=== PATIENT | female | born 1935 | race Caucasian/White ===

== ENCOUNTER 2019-02-21 10:59 | Observation (INO) | payer MEDICARE, OTHER ==
[~2019-02-21] VITALS: Ht 154.9 cm; Wt 47.7 kg
[~2019-02-21 10:59] MED LIST: ANTIVERT12.5 MG PO; ARICEPT10 MG PO; ARTIFICIAL TEAR15 ML EACH EYE; BAYER CHEWABLE81 MG PO; BENICAR40 MG PO; BENICAR5 MG PO; BOUDREAUXS113 GM TP; CYMBALTA60 MG PO; LIDODERM 5 %1 PATCH TRANSDERM; LOMOTIL TABLET1 TAB PO; LOPRESSOR25 MG PO; MAG-OXIDE400 MG PO; NITROSTAT0.4 MG SL; NORVASC5 MG PO; PLAVIX75 MG PO; PRAVACHOL20 MG PO; PREDNISONE10 MG PO; PREDNISONE5 MG PO; PROTONIX40 MG PO; SEROQUEL25 MG PO; SYNTHROID75 MCG PO; ULTRACET TABLET1 TAB PO; VITAMIN B-121000 MCG PO; XANAX1 MG PO; ZESTRIL20 MG PO; ZOLOFT50 MG PO
[2019-02-21] MEDS ORDERED: DEBROX OTIC15 ML EACH EAR (11:11)
[2019-02-21] MEDS ORDERED: NORVASC5 MG PO (11:11)
[2019-02-21] MEDS ORDERED: CYMBALTA20 MG PO (11:12)
[2019-02-21] MEDS ORDERED: PACERONE200 MG PO (11:12)
[2019-02-21] MEDS ORDERED: METOPROLOL TART25 MG PO (11:13)
[2019-02-21] MEDS ORDERED: FOLIC ACID1 MG PO (11:13)
[2019-02-21] MEDS ORDERED: MAGNESIUM OXID420 MG PO (11:13)
[2019-02-21] MEDS ORDERED: ROBAXIN500 MG PO (11:14)
[2019-02-21] MEDS ORDERED: LACTINEX C1 TAB.CHEW PO (11:15)
[2019-02-21 12:02] LABS: HEMATOCRIT 36.3 % (36.0-48.0); HEMOGLOBIN 12.7 g/dL (12-16); LYMPHOCYTES 22.3 % (15-50); MCH 32.7 pg (26.0-34.0); MCV 93.6 fL (80.0-100.0); NEUTROPHILS 62.5 % (40-80); PLATELET COUNT 199 10x3/uL (130-400); RBC 3.88 10x6/uL (4.00-5.40); WBC 6.9 10x3/uL (4.8-10.8)
[2019-02-21 12:09] LABS: ALBUMIN 3.1 g/dL (3.4-5.0); ALKALINE PHOSPHATASE 54 U/L (46-116); ALT (SGPT) 79 U/L (10-68); BILIRUBIN - TOTAL 0.43 mg/dL (0.2-1.3); CALC OSMOLALITY 283 mosm/kg (275-300); CALCIUM 9.1 mg/dL (8.5-10.1); CARBON DIOXIDE 31.7 mmol/L (21.0-32.0); CHLORIDE - SERUM 98 mmol/L (98-107); CREATININE - SERUM 1.4 mg/dL (0.6-1.3); GLUCOSE 102 mg/dL (74-106); POTASSIUM - SERUM 3.1 mmol/L (3.5-5.1); PROTEIN - SERUM 6.4 g/dL (6.4-8.2); SODIUM 139 mmol/L (136-145); UREA NITROGEN 30 mg/dL (7-18); eGFR NON AFRICAN AMERICAN 38 mL/min (90-120)
[2019-02-21 12:19] LABS: CREATINE KINASE 17 UL (21-215); LIPASE 118 U/L (73-393); MAGNESIUM - SERUM 2.1 mg/dL (1.8-2.4); PRO BNP 3452 pg/mL (0-450); THYROID STIMULATING HORMONE 6.03 uIU/mL (0.36-3.74); TROPONIN-I < 0.017 ng/mL (0.000-0.060)
[2019-02-21 13:34] LABS: APTT 62.1 SECONDS (22.8-39.4)
[2019-02-21 13:47] LABS: INR 10.22 (0.85-1.17); PROTIME 80.3 SECONDS (11.6-15.0)
[2019-02-21 14:04] LABS: APPEARANCE CLEAR (CLEAR); BACTERIA FEW /hpf (NONE SEEN); BILIRUBIN NEGATIVE (NEGATIVE); COLOR YELLOW (YELLOW); EPITHELIAL CELLS 0-5 /hpf (0-5); GLUCOSE 100 mg/dL (NEGATIVE); KETONE NEGATIVE (NEGATIVE); NITRITE NEGATIVE (NEGATIVE); PROTEIN TRACE mg/dL (NEGATIVE); UROBILINOGEN NORMAL (NORMAL); WHITE CELLS - URINE RARE /hpf (0-5)
[2019-02-21 14:06] LABS: MUCUS <1+ /lpf (NONE SEEN)
[2019-02-21 16:40] VITALS: BP 144/64; Ht 154.9 cm; Wt 47.7 kg
--- NOTE | 2019-02-21 17:39 | NUR ---
PT LYING IN BED AAO X4 TO PERSON, PLACE, TIME, AND SITUATION. DENIES NEEDS AT THIS TIME. CL IN REACH. SIDE RAILS UP X3 FOR PT SAEFTY. BED IN LOWEST POSITION.
[2019-02-21 20:58] VITALS: BP 111/50
[2019-02-22 01:35] VITALS: BP 141/52
--- NOTE | 2019-02-22 04:42 | NUR ---
REC'D. IN BED AT [facility] OF SHIFT WATCHING TV DR SCHERER HERE WILL CONTINUE TO MONITOR FOR ANY CHGES AND FOLLOW CURRENT PLAN OF CARE
[2019-02-22 05:04] LABS: BASOPHILS 0.2 % (0-2); EOSINOPHILS 4.6 % (0-7); IMMATURE GRANULOCYTES 1.3 % (0-5); LYMPHOCYTES 15.4 % (15-50); MCH 31.1 pg (26.0-34.0); MEAN PLATELET VOLUME 9.8 fL (7.4-10.4); MONOCYTES 11.7 % (2-11); NEUTROPHILS 66.8 % (40-80); PLATELET COUNT 168 10x3/uL (130-400); RDW 13.2 % (11.5-14.5); WBC 5.5 10x3/uL (4.8-10.8)
[2019-02-22 05:07] LABS: HEMATOCRIT 28.2 % (36.0-48.0); HEMOGLOBIN 9.6 g/dL (12-16); MCV 91.3 fL (80.0-100.0); RBC 3.09 10x6/uL (4.00-5.40)
[2019-02-22 05:24] LABS: INR 1.81 (0.85-1.17); PROTIME 20.3 SECONDS (11.6-15.0)
[2019-02-22 05:25] VITALS: BP 180/71
[2019-02-22 05:37] LABS: BILIRUBIN - TOTAL 0.59 mg/dL (0.2-1.3); CALCIUM 8.7 mg/dL (8.5-10.1); CARBON DIOXIDE 32.3 mmol/L (21.0-32.0); CREATININE - SERUM 1.2 mg/dL (0.6-1.3)
[2019-02-22 05:40] LABS: ANION GAP 9.5 mmol/L (8-16); POTASSIUM - SERUM 2.8 mmol/L (3.5-5.1)
[2019-02-22 08:42] VITALS: BP 180/69
--- NOTE | 2019-02-22 09:47 | NUR ---
MORNING ASSESSMENT COMPLETE. SEE ASSESSMENT FLOWSHEET FOR FURTHER DETAILS. PT LYING IN BED AAO X4 TO PERSON, PLACE, TIME, AND SITUATION. DENIES NEEDS AT THIS TIME. CL IN REACH. SIDE RAILS UP X3 FOR PT SAEFTY. BE IN LOWEST POSITION.
--- NOTE | 2019-02-22 12:49 | MORECARE ---
CASE MANAGEMENT DISCHARGE SUMMARY PATIENT: NICOLE SHETH UNIT: [id number] ADM DATE: 02/21/19 AGE: 83 : 36 SEX: F ROOM/BED: D.[facility] AUTHOR: TONNY BOSWELL PHYSICIAN: REFERRING PHYSICIAN: CHRISTIANO SCHERER MD DATE OF SERVICE: 02/22/19 Discharge Plan Patient Name: NICOLE SHETH Facility: [facility]:[place] : 1935 Planned Disposition: Assisted Living Anticipated Discharge Date: 02/22/19 Discharge Date: Expected LOS: 1 Initial Reviewer: [email or web address] Initial Review Date: 02/21/2019 Generated: 02/22/19 1:48 pm DCPIA - Discharge Planning Initial Assessment Updated by [email or web address]: June Jackson on 02/22/19 12:48 pm * Is the patient Alert and Oriented? Yes * How many steps to enter\exit or inside your home? 0/0 * PCP Dr. Brant Eddy * Pharmacy [facility] supplies medicine * Preadmission Environment Assisted Living * Facility Name [facility] * ADLs Partial Dependent * Partial ADLs (Assistance needed) Ambulation Bathing Dressing Medication Management * Equipment Walker * List name and contact numbers for known caregivers / representatives who currently or will assist patient after discharge: Abraham Teague - does not have number * Verbal permission to speak to the caregivers and representatives has been obtained from the patient. No * Community resources currently utilized Assisted Living * Please name any agencies selected above. [facility] * Additional services required to return to the preadmission environment? No * Can the patient safely return to the preadmission environment? Yes * Has this patient been hospitalized within the prior 30 days at any hospital? No Patient Name: NICOLE SHETH Page [id number] at 1249 All edits/amendments must be made on the electronic document DICTATION DATE: 02/22/198 ADMISSIONS RN: EVA 02/22/19 1248 RPT#: [id number] DC DATE: STATUS: ADM IN [facility] [address] [place] [address] END OF REPORT
--- NOTE | 2019-02-22 12:56 | MORECARE ---
CASE MANAGEMENT DISCHARGE SUMMARY PATIENT: NICOLE SHETH UNIT: [id number] ADM DATE: 02/21/19 AGE: 83 : 36 SEX: F ROOM/BED: D.2233 AUTHOR: ELBERTDOC PHYSICIAN: REFERRING PHYSICIAN: CHRISTIANO SCHERER MD DATE OF SERVICE: 02/22/19 Discharge Plan Patient Name: NICOLE SHETH Facility: [facility]:[place] : 1935 Planned Disposition: Assisted Living Anticipated Discharge Date: 02/22/19 Discharge Date: Expected LOS: 1 Initial Reviewer: [email or web address] Initial Review Date: 02/21/2019 Generated: 02/22/19 1:56 pm Comments DCP- Discharge Planning Updated by [email or web address]: June Jackson on 02/22/19 11:[address] Patient Name: NICOLE SHETH Admission Status: ER Accout number: [id number] Admission Date: 02-21-2019 : 1935 Admission Diagnosis: Attending: CHRISTIANO SCHERER Current LOS: 1 Anticipated DC Date: 02-22-2019 Planned Disposition: Assisted Living Primary Insurance: MEDICARE A & B Discharge Planning Comments: CM met with patient to complete initial dc planning assessment. CM educated patient on the CM role and verbal consent given by patient to complete assessment. Patient lives at [facility]. At discharge patient plans to return and feels this is a safe discharge. She states she was recently in [facility] and used all the days she could prior to going to [facility]. CM discussed availability of home health, rehab services, and medical equipment. Patient denied known discharge needs at this time. She declines inpatient rehab or skilled therapy at this time. CM will continue to follow and will assist as needed with dc plans/needs. Forestry Pilot: June Jackson DCPIA - Discharge Planning Initial Assessment Updated by [email or web address]: June Jackson on 02/22/19 12:48 pm * Is the patient Alert and Oriented? Yes * How many steps to enter\exit or inside your home? 0/0 * PCP Dr. Brant Eddy * Pharmacy [facility] supplies medicine * Preadmission Environment Assisted Living * Facility Name [facility] * ADLs Partial Dependent * Partial ADLs (Assistance needed) Ambulation Bathing Dressing Medication Management * Equipment Walker * List name and contact numbers for known caregivers / representatives who currently or will assist patient after discharge: Abraham Teague - does not have number * Verbal permission to speak to the caregivers and representatives has been obtained from the patient. No * Community resources currently utilized Assisted Living * Please name any agencies selected above. [facility] * Additional services required to return to the preadmission environment? No * Can the patient safely return to the preadmission environment? Yes * Has this patient been hospitalized within the prior 30 days at any hospital? No Last DP export: 02/22/19 11:49 a Patient Name: NICOLE SHETH Page 71610 at 1256 All edits/amendments must be made on the electronic document DICTATION DATE: 02/22/191254 REAL ESTATE TRANSACTION COORDINATOR: EAV 02/22/19 1255 RPT#: [id number] DC DATE: STATUS: ADM IN [facility] [address] [place] [address] END OF REPORT
[2019-02-22] MEDS ORDERED: COUMADIN1 MG PO (12:57)
--- NOTE | 2019-02-22 13:04 | MORECARE ---
CASE MANAGEMENT DISCHARGE SUMMARY PATIENT: NICOLE SHETH UNIT: [id number] ADM DATE: 02/21/19 AGE: 83 : 36 SEX: F ROOM/BED: D.2233 AUTHOR: ELBERTDOC PHYSICIAN: REFERRING PHYSICIAN: CHRISTIANO SCHERER MD DATE OF SERVICE: 02/22/19 Discharge Plan Patient Name: NICOLE SHETH Facility: [facility]:[place] : 1935 Planned Disposition: Assisted Living Anticipated Discharge Date: 02/22/19 Discharge Date: Expected LOS: 1 Initial Reviewer: [email or web address] Initial Review Date: 02/21/2019 Generated: 02/22/19 2:04 pm Comments DCP- Discharge Planning Updated by [email or web address]: June Jackson on 02/22/19 11:[address] Patient Name: NICOLE SHETH Admission Status: ER Accout number: [id number] Admission Date: 02-21-2019 : 1935 Admission Diagnosis: Attending: CHRISTIANO SCHERER Current LOS: 1 Anticipated DC Date: 02-22-2019 Planned Disposition: Assisted Living Primary Insurance: MEDICARE A & B Discharge Planning Comments: CM met with patient to complete initial dc planning assessment. CM educated patient on the CM role and verbal consent given by patient to complete assessment. Patient lives at [facility]. At discharge patient plans to return and feels this is a safe discharge. She states she was recently in [facility] and used all the days she could prior to going to [facility]. CM discussed availability of home health, rehab services, and medical equipment. Patient denied known discharge needs at this time. She declines inpatient rehab or skilled therapy at this time. CM will continue to follow and will assist as needed with dc plans/needs. Retail Stock Clerk: June Jackson DCPIA - Discharge Planning Initial Assessment Updated by [email or web address]: June Jackson on 02/22/19 12:48 pm * Is the patient Alert and Oriented? Yes * How many steps to enter\exit or inside your home? 0/0 * PCP Dr. Brant Eddy * Pharmacy [facility] supplies medicine * Preadmission Environment Assisted Living * Facility Name [facility] * ADLs Partial Dependent * Partial ADLs (Assistance needed) Ambulation Bathing Dressing Medication Management * Equipment Walker * List name and contact numbers for known caregivers / representatives who currently or will assist patient after discharge: Abraham Teague - does not have number * Verbal permission to speak to the caregivers and representatives has been obtained from the patient. No * Community resources currently utilized Assisted Living * Please name any agencies selected above. [facility] * Additional services required to return to the preadmission environment? No * Can the patient safely return to the preadmission environment? Yes * Has this patient been hospitalized within the prior 30 days at any hospital? No External Providers External Provider: Mayi Sosa Next Contact Date: Service Request Date: Service Type: Resolution: Reviewer: Comments: Last DP export: 02/22/19 11:56 a Patient Name: NICOLE SHETH Page 91789 at 1304 All edits/amendments must be made on the electronic document DICTATION DATE: 02/22/19 1304 PHYSICAL SECURITY ENGINEER: EVA 02/22/19 1304 RPT#: [id number] DC DATE: STATUS: ADM IN [facility] [address] [place] [address] END OF REPORT
[2019-02-22 13:07] VITALS: BP 140/60
--- NOTE | 2019-02-22 13:11 | MORECARE ---
CASE MANAGEMENT DISCHARGE SUMMARY PATIENT: NICOLE SHETH UNIT: [id number] ADM DATE: 02/21/19 AGE: 83 : 36 SEX: F ROOM/BED: D.2233 AUTHOR: ELBERT,DOC PHYSICIAN: REFERRING PHYSICIAN: CHRISTIANO SCHERER MD DATE OF SERVICE: 02/22/19 Discharge Plan Patient Name: NICOLE SHETH Facility: [facility]:[place] : 1935 Planned Disposition: Assisted Living Anticipated Discharge Date: 02/22/19 Discharge Date: Expected LOS: 1 Initial Reviewer: [email or web address] Initial Review Date: 02/21/2019 Generated: 02/22/19 2:10 pm Comments DCP- Discharge Planning Updated by [email or web address]: June Jackson on 02/22/19 12:[address] Discharging to [facility] today. I spoke with nurse who states patient was taking Coumadin 1.5mg daily and I informed her it will be decreased to 1mg daily. They will pick the patient up at 2:45. I have faxed them clinical/discharge order/MAR. CM will continue to follow and assist with discharge planning/needs. DCP- Discharge Planning Updated by [email or web address]: June Jackson on 02/22/19 11:[address] Patient Name: NICOLE SHETH Admission Status: ER Accout number: [id number] Admission Date: 02-21-2019 : 1935 Admission Diagnosis: Attending: CHRISTIANO SCHERER Current LOS: 1 Anticipated DC Date: 02-22-2019 Planned Disposition: Assisted Living Primary Insurance: MEDICARE A & B Discharge Planning Comments: CM met with patient to complete initial dc planning assessment. CM educated patient on the CM role and verbal consent given by patient to complete assessment. Patient lives at [place]. At discharge patient plans to return and feels this is a safe discharge. She states she was recently in [facility] facility and used all the days she could prior to going to [facility]. CM discussed availability of home health, rehab services, and medical equipment. Patient denied known discharge needs at this time. She declines inpatient rehab or skilled therapy at this time. CM will continue to follow and will assist as needed with dc plans/needs. Hammerer Helper: June Manuel DCPIA - Discharge Planning Initial Assessment Updated by [id number]: June Danielssumit on 02/22/19 12:48 pm * Is the patient Alert and Oriented? Yes * How many steps to enter\exit or inside your home? 0/0 * PCP Dr. Brant Eddy * Pharmacy [facility] supplies medicine * Preadmission Environment Assisted Living * Facility Name [facility] * ADLs Partial Dependent * Partial ADLs (Assistance needed) Ambulation Bathing Dressing Medication Management * Equipment Walker * List name and contact numbers for known caregivers / representatives who currently or will assist patient after discharge: States sonAbraham - does not have number * Verbal permission to speak to the caregivers and representatives has been obtained from the patient. No * Community resources currently utilized Assisted Living * Please name any agencies selected above. [facility] * Additional services required to return to the preadmission environment? No * Can the patient safely return to the preadmission environment? Yes * Has this patient been hospitalized within the prior 30 days at any hospital? No Last DP export: 02/22/19 12:04 p Patient Name: NICOLE SHETH Page 50160 at 1311 All edits/amendments must be made on the electronic document DICTATION DATE: 02/22/191309 FORECLOSURE PARALEGAL: EVA 02/22/19 131 RPT#: [id number] DC DATE: STATUS: ADM IN [facility] [address] [place] [address] END OF REPORT
--- NOTE | 2019-02-22 15:09 | NUR ---
PT D/C CEASAR DICKEY VIA W/C. WENT OVER ALL D/C INSTRUCTIONS. PT STATES UNDERSTANDING. LEFT WITH ALL PERSONAL BELONGINGS
== END 2019-02-22 15:11 | disposition home or self-care (01) ==
LOC: D.ER 10:59 → D.MS 13:26 → OBSVTIME 13:26 → D.MS 13:26 → D.ER 14:25 → D.MS 14:45
PROVIDERS: Family Medicine; ADMIT Internal Medicine Nephrology; ATTEND Internal Medicine Nephrology
DX: D68.59 Other primary thrombophilia (principal); E87.5 Hyperkalemia; I48.91 Unspecified atrial fibrillation; Z86.73 Personal history of transient ischemic attack (TIA), and cerebral infarction without residual deficits; I12.9 Hypertensive chronic kidney disease with stage 1 through stage 4 chronic kidney disease, or unspecified chronic kidney disease; N18.9 Chronic kidney disease, unspecified

== ENCOUNTER 2019-03-14 11:19 | Emergency (ER) | payer MEDICARE, OTHER ==
[~2019-03-14] VITALS: Ht 152.4 cm; Wt 44.5 kg
[~2019-03-14 11:19] MED LIST changes: +COUMADIN1 MG PO; +CYMBALTA20 MG PO; +DEBROX OTIC15 ML EACH EAR; +FOLIC ACID1 MG PO; +LACTINEX C1 TAB.CHEW PO; +MAGNESIUM OXID420 MG PO; +METOPROLOL TART25 MG PO; +PACERONE200 MG PO; +ROBAXIN500 MG PO
[2019-03-14 11:22] VITALS: Ht 152.4 cm; Wt 44.5 kg
[2019-03-14 12:01] LABS: BASOPHILS 0.3 % (0-2); EOSINOPHILS 1.4 % (0-7); HEMATOCRIT 34.6 % (36.0-48.0); HEMOGLOBIN 11.7 g/dL (12-16); IMMATURE GRANULOCYTES 0.5 % (0-5); LYMPHOCYTES 22.8 % (15-50); MCH 31.8 pg (26.0-34.0); MCHC 33.8 g/dL (31.0-37.0); MEAN PLATELET VOLUME 9.2 fL (7.4-10.4); MONOCYTES 10.9 % (2-11); NEUTROPHILS 64.1 % (40-80); PLATELET COUNT 193 10x3/uL (130-400); RBC 3.68 10x6/uL (4.00-5.40); RDW 14.1 % (11.5-14.5); WBC 7.8 10x3/uL (4.8-10.8)
[2019-03-14 12:19] LABS: ALBUMIN 3.8 g/dL (3.4-5.0); ANION GAP 10.7 mmol/L (8-16); BILIRUBIN - TOTAL 0.6 mg/dL (0.2-1.3); CALCIUM 9.4 mg/dL (8.5-10.1); CARBON DIOXIDE 30.8 mmol/L (21.0-32.0); CREATININE - SERUM 1.5 mg/dL (0.6-1.3); POTASSIUM - SERUM 3.5 mmol/L (3.5-5.1); PROTEIN - SERUM 7.3 g/dL (6.4-8.2)
[2019-03-14 12:26] LABS: APTT 42.3 SECONDS (22.8-39.4); INR 3.17 (0.85-1.17); PROTIME 31.7 SECONDS (11.6-15.0)
[2019-03-14 17:56] VITALS: BP 158/71
== END 2019-03-14 16:28 | disposition home or self-care (01) ==
LOC: D.ER 11:19
PROVIDERS: Family Medicine
DX: S09.90XA Unspecified injury of head, initial encounter (principal); W18.30XA Fall on same level, unspecified, initial encounter; Y93.89 Activity, other specified; Y92.89 Other specified places as the place of occurrence of the external cause; S00.03XA Contusion of scalp, initial encounter; S60.221A Contusion of right hand, initial encounter; S50.812A Abrasion of left forearm, initial encounter

== ENCOUNTER 2019-07-27 08:15 | Inpatient (IN) | payer MEDICARE, OTHER ==
[~2019-07-27] VITALS: Ht 152.4 cm; Wt 46.3 kg
[2019-07-27 08:52] LABS: BASOPHILS 0.1 % (0-2); EOSINOPHILS 0.4 % (0-7); HEMATOCRIT 36.4 % (36.0-48.0); HEMOGLOBIN 12.2 g/dL (12-16); IMMATURE GRANULOCYTES 0.7 % (0-5); LYMPHOCYTES 1.3 % (15-50); MCH 31.9 pg (26.0-34.0); MCHC 33.5 g/dL (31.0-37.0); MCV 95.3 fL (80.0-100.0); NEUTROPHILS 92.5 % (40-80); PLATELET COUNT 146 10x3/uL (130-400); RBC 3.82 10x6/uL (4.00-5.40); RDW 13.6 % (11.5-14.5); WBC 13.7 10x3/uL (4.8-10.8)
--- NOTE | 2019-07-27 09:14 | NUR ---
CRITICAL LABRECEIVED FROM MINISTERIOHEMATOCRIT 16.7; HEMOBLOBIN 5.2; RBC 1.89; EDP VON NOTIFIED
[2019-07-27 09:16] LABS: ALBUMIN 3.2 g/dL (3.4-5.0); ANION GAP 12.7 mmol/L (8-16); BILIRUBIN - TOTAL 0.51 mg/dL (0.2-1.3); CALCIUM 8.3 mg/dL (8.5-10.1); CARBON DIOXIDE 29.1 mmol/L (21.0-32.0); CREATININE - SERUM 1.7 mg/dL (0.6-1.3); MAGNESIUM - SERUM 1.6 mg/dL (1.8-2.4); PROTEIN - SERUM 6.3 g/dL (6.4-8.2); THYROID STIMULATING HORMONE 1.25 uIU/mL (0.36-3.74); TROPONIN-I 0.027 ng/mL (0.000-0.060)
[2019-07-27 09:19] VITALS: BP 137/50
[2019-07-27 09:20] LABS: POTASSIUM - SERUM 2.8 mmol/L (3.5-5.1)
[2019-07-27 09:42] LABS: APPEARANCE HAZY (CLEAR); BILIRUBIN NEGATIVE (NEGATIVE); COLOR YELLOW (YELLOW); GLUCOSE 500 mg/dL (NEGATIVE); KETONE NEGATIVE (NEGATIVE); NITRITE NEGATIVE (NEGATIVE); PROTEIN 2+ mg/dL (NEGATIVE); SPECIFIC GRAVITY 1.015 (1.005-1.020); UROBILINOGEN NORMAL (NORMAL)
[2019-07-27 09:43] LABS: BACTERIA FEW /hpf (NEGATIVE); EPITHELIAL CELLS 0-5 /hpf (0-5); HYALINE CAST RARE /lpf (NONE SEEN); MUCUS <1+ /lpf (NONE SEEN); WHITE CELLS - URINE RARE /hpf (NEGATIVE)
--- NOTE | 2019-07-27 10:05 | NUR ---
ATTEMPTED REPORT, RECIEVING NURSE NOT AVAILABLE, WILL RETURN CALL
[2019-07-27 10:20] VITALS: BP 118/51
[2019-07-27 11:13] VITALS: BP 122/50; BMI 19.9
--- NOTE | 2019-07-27 11:21 | NUR ---
PATIENT ADMITTED TO ROOM 2214. ADMISSION ASSESSMENT COMPLETE. SCDS PLACED ON PATIENT. FALL PRECAUTIONS IN PLACE. WILL CONTINUE TO MONITOR.
--- NOTE | 2019-07-27 11:22 | NUR ---
ROCEPHIN INFUSION ENDED @1025
--- NOTE | 2019-07-27 11:43 | MORECARE ---
CASE MANAGEMENT DISCHARGE SUMMARY PATIENT: NICOLE SHETH UNIT: [id number] ADM DATE: 07/27/19 AGE: 83 : 36 SEX: F ROOM/BED: D.2214 AUTHOR: TONNY BOSWELL PHYSICIAN: REFERRING PHYSICIAN: CHRISTIANO SCHERER MD DATE OF SERVICE: 07/27/19 Discharge Plan Patient Name: NICOLE SHETH Facility: [facility]:[place] : 1935 Planned Disposition: Home Anticipated Discharge Date: 07/30/19 Discharge Date: Expected LOS: 3 Initial Reviewer: [email or web address] Initial Review Date: 07/27/2019 Generated: 07/27/19 12:43 pm Patient Name: NICOLE SHETH Page 37331 at 1143 All edits/amendments must be made on the electronic document DICTATION DATE: 07/27/19 1143 RESIDENTIAL GLAZIER: EVA 07/27/19 1143 RPT#: [id number] DC DATE: STATUS: ADM IN [facility] [address] [place] [address] END OF REPORT
--- NOTE | 2019-07-27 11:47 | NUR ---
PATIENT UNABLE TO STATE WHICH PHARMACY SHE USES. DOES NOT KNOW HOME MEDS. CALLED DR KNIGHT'S NURSE. STATES PATIENT IS FROM [facility] IN [place]. [facility] WILL SEND OVER MED REC AND OFFICE NOTE.
--- NOTE | 2019-07-27 11:49 | NUR ---
SPOKE WITH LEONARDO, STOCK PATCH SAWYER, TO REQUEST MONITOR FOR PATIENT.
[2019-07-27] MEDS ORDERED: MACROBID100 MG PO (11:51)
[2019-07-27] MEDS ORDERED: ATIVAN0.5 MG PO (11:52)
[2019-07-27] MEDS ORDERED: SYNTHROID112 MCG PO (11:53)
--- NOTE | 2019-07-27 11:53 | MORECARE ---
CASE MANAGEMENT DISCHARGE SUMMARY PATIENT: NICOLE SHETH UNIT: [id number] ADM DATE: 07/27/19 AGE: 83 : 36 SEX: F ROOM/BED: D.2214 AUTHOR: ELBERT,DOC PHYSICIAN: REFERRING PHYSICIAN: CHRISTIANO SCHERER MD DATE OF SERVICE: 07/27/19 Discharge Plan Patient Name: NICOLE SHETH Facility: [facility]:[place] : 1935 Planned Disposition: Home Anticipated Discharge Date: 07/30/19 Discharge Date: Expected LOS: 3 Initial Reviewer: [email or web address] Initial Review Date: 07/27/2019 Generated: 07/27/19 12:52 pm DCP- Discharge Planning Updated by [email or web address]: Dalila Mcpherson on 07/27/19 10:[address] DC PLAN: Return to [facility]. ANTICIPATED DC NEEDS: Denied known dc needs. CM met with patient to complete initial dc planning assessment. CM educated patient on the CM role and verbal consent given by patient to complete assessment. CM verified patient's address, phone number, and emergency contact phone numbers. Patient lives at [facility]. At discharge patient plans to return to [facility] and feels this is a safe discharge. CM discussed availability of home health, rehab services, and medical equipment. Patient denied known discharge needs at this time. Transportation provider at discharge will be [facility] . CM will continue to follow and will assist as needed with dc plans/needs. Dalila Mcpherson RN, [facility] DCPIA - Discharge Planning Initial Assessment Updated by [email or web address]: Dalila Mcpherson on 07/27/19 11:43 am * Is the patient Alert and Oriented? Yes * How many steps to enter\exit or inside your home? None * PCP Dr. Brant Eddy * Pharmacy [facility] * Preadmission Environment Assisted Living * Facility Name [facility] - [phone] * ADLs Partial Dependent * Partial ADLs (Assistance needed) Medication Management * Equipment Oxygen Shower Chair Walker * Other Equipment Does not have portable Oxygen. Wears O2 @ HS and prn. * List name and contact numbers for known caregivers / representatives who currently or will assist patient after discharge: Fransisca Lyman - [phone]-she thinks * Verbal permission to speak to the caregivers and representatives has been obtained from the patient. Yes * Community resources currently utilized None * Additional services required to return to the preadmission environment? No * Can the patient safely return to the preadmission environment? Yes * Has this patient been hospitalized within the prior 30 days at any hospital? No Last DP export: 07/27/19 10:43 Patient Name: NICOLE SHETH Page [phone] at 1153 All edits/amendments must be made on the electronic document DICTATION DATE: 07/27/19 115 MEDICAL BILLING AND CODING INSTRUCTOR: EVA 07/27/19 115 RPT#: [id number] DC DATE: STATUS: ADM IN [facility] [address] [place] [address] END OF REPORT
[2019-07-27] MEDS ORDERED: HYDROCODON-ACE1 EAC7 PO (11:56)
[2019-07-27] MEDS ORDERED: ROBAXIN500 MG PO (11:57)
[2019-07-27] MEDS ORDERED: FOLIC ACID1 MG PO (12:05)
[2019-07-27] MEDS ORDERED: CYMBALTA20 MG PO (12:05)
[2019-07-27] MEDS ORDERED: PROTONIX40 MG PO (12:07)
[2019-07-27] MEDS ORDERED: VITAMIN D31000 UNIT PO (12:08)
[2019-07-27] MEDS ORDERED: CALCIUM 600 +1 EAC3 PO (12:08)
--- NOTE | 2019-07-27 13:11 | NUR ---
PATIENT SLEEPING. WILL CONTINUE TO MONITOR.
--- NOTE | 2019-07-27 15:11 | NUR ---
NEW BAKED POTATO ORDERED PER PATIENT REQUEST. PATIENT'S WAS COLD.
--- NOTE | 2019-07-27 16:36 | NUR ---
REFUSES BLOOD SUGAR CHECK. STATES NOT DIABETIC. CHARTED IN MAR. DENIES NEEDS. WILL CONTINUE TO MONITOR.
--- NOTE | 2019-07-27 16:38 | NUR ---
PATIENT BLOOD PRESSURE RECHECKED AFTER LEGAL SECRETARY RECEPTIONIST GOT 100/43. BP 110/60.
[2019-07-27 16:45] VITALS: BP 100/43
--- NOTE | 2019-07-27 17:20 | NUR ---
PATIENT WITH NO BM SINCE COMING TO FLOOR. UNABLE TO COLLECT STOOL SPECIMEN AT THIS TIME.
[2019-07-27 17:24] LABS: INR 1.78 (0.85-1.17); PROTIME 20.1 SECONDS (11.6-15.0)
--- NOTE | 2019-07-27 18:33 | NUR ---
RESTING IN BED. DENIES NEEDS. BED LOW. FALL PRECAUTIONS IN PLACE. CALL SQUIRES AND PERSONAL ITEMS IN REACH.
--- NOTE | 2019-07-27 19:15 | NUR ---
PATIENT ALERT AND ORIENTED WHEN ENTERING THE ROOM. PATIENT WEARING 2 L NASAL CANNULA. LEFT SIDED PACEMAKER PRESENT. HAS LEFT FOREARM IV THAT IS INFUSING AT A KVO RATE. PATIENT DENIES PAIN AND DISCOMFORT. PATIENT IS HARD OR HEARING BUT ORIENTED, THOUGH THIS NURSE HAD TO REPEAT SELF AND TALK SLOWLY FOR PATIENT TO UNDERSTANDING. FALL PRECAUTIONS IN PLACE. SCD'S ON. PROVIDED INFORMATION SCIENTIFIC SOFTWARE ENGINEER LIGHT AND HOW TO USE. PATIENT PROVIDES RETURN DEMONSTRATION. BED LOCKED AND LOWERED. DENIES FURTHER NEEDS AT THIS TIME.
[2019-07-27 20:01] VITALS: BP 103/43
--- NOTE | 2019-07-27 21:00 | NUR ---
ADMINSITERED HS MEDICATIONS. REFUSES FSBS AT THIS TIME. EVEN WITH EDUCATION PATIENT REFUSES. STATES SHE IS NOT A DIABETIC. REQUESTS ATIVAN. BLOOD PRESSURE IS TOO LOW FOR ATIVAN AT THIS TIME, PATIENT VERBALIZES UNDERSTANDING.
[2019-07-28] VITALS: BP 133/53
--- NOTE | 2019-07-28 00:39 | NUR ---
RESTING QUIETLY WITH NO SIGNS OR SYMPTOMS OF DISTRESS. CALL LIGHT REMAINS IN REACH OF PATIENT. CPOC.
[2019-07-28 04:00] VITALS: BP 93/51
[2019-07-28 06:22] LABS: BASOPHILS 0.1 % (0-2); EOSINOPHILS 2.7 % (0-7); HEMATOCRIT 32.4 % (36.0-48.0); HEMOGLOBIN 10.6 g/dL (12-16); IMMATURE GRANULOCYTES 0.6 % (0-5); LYMPHOCYTES 5.4 % (15-50); MCH 31.2 pg (26.0-34.0); MCHC 32.7 g/dL (31.0-37.0); MCV 95.3 fL (80.0-100.0); MEAN PLATELET VOLUME 10.1 fL (7.4-10.4); MONOCYTES 7.4 % (2-11); NEUTROPHILS 83.8 % (40-80); PLATELET COUNT 134 10x3/uL (130-400); RDW 13.7 % (11.5-14.5)
[2019-07-28 06:27] LABS: WBC 8.7 10x3/uL (4.8-10.8)
[2019-07-28 06:44] LABS: ANION GAP 12.9 mmol/L (8-16); CALCIUM 7.8 mg/dL (8.5-10.1); CARBON DIOXIDE 24.8 mmol/L (21.0-32.0); CREATININE - SERUM 1.9 mg/dL (0.6-1.3); POTASSIUM - SERUM 3.7 mmol/L (3.5-5.1)
--- NOTE | 2019-07-28 07:35 | NUR ---
AWAKE AND ALERT. ORIENTED X3. NO C/O AT THIS TIME. LUNGS ARE CLEAR BILATERALLY BUT DIMINISHED IN LOWER LOBES. OCCASSIONAL PRODUCTIVE COUGH NOTED. SKIN IS INTACT WITHOUT REDNESS. SL TO LEFT FOREARM IS PATENT WITHOUT REDNESS AT INSERTION SITE. DENIES NEEDS. SCD'S IN PLACE.
[2019-07-28 07:59] VITALS: BP 131/60
--- NOTE | 2019-07-28 09:54 | NUR ---
ATE OVER HALF OF BREAKFAST. ASSISTED WITH MENU PER STAFF. DENIES NEEDS.
[2019-07-28 10:33] VITALS: Ht 152.4 cm; Wt 46.3 kg
--- NOTE | 2019-07-28 12:30 | NUR ---
IV TO LEFT FOREARM LEAKING. RESITED TO LEFT FOREARM AFTER MULTIPLE ATTEMPTS WITH 22G. DENIES NEEDS. LUNCH SERVED IN ROOM.
[2019-07-28 12:42] VITALS: BP 125/60
[2019-07-28 17:32] VITALS: BP 128/52
--- NOTE | 2019-07-28 19:00 | NUR ---
ALERT AND ORIENTED WHEN ENTERING THE ROOM. WEARING 2L NASAL CANNULA. HAS LEFT FOREARM IV THAT APPEARS PATENT AND IS CURRENTLY SALINE LOCKED WITHOUT REDNESS TO INSERTION SITE. PATIENT HAS YELLOW GOWN AND YELLOW BRACELET WITH NANCY ALARM ON AND FUNCTIONING CORRECTLY. HOB IS CURRENTLY AT A 30 DEGREE ANGLE. PATIENT REPORTS NO DISTRESS AND DOES NOT APPEAR IN ANY DISTRESS AT THIS TIME. PATIENT INCONTINENT. ASSESSED PERINEAL AND BUTTOCKS FOR SKIN INTEGRITY. NO REDNESS OR BREAKDOWN NOTED. SHEETS REMAIN DRY. SCD'S ON AND FUNCTIONING AT THIS TIME. CALL LIGHT IN REACH. CPOC.
[2019-07-28 20:00] VITALS: BP 154/71
[2019-07-29 04:00] VITALS: BP 140/54
[2019-07-29 05:15] LABS: BASOPHILS 0.2 % (0-2); EOSINOPHILS 3.5 % (0-7); HEMATOCRIT 32.7 % (36.0-48.0); HEMOGLOBIN 10.7 g/dL (12-16); IMMATURE GRANULOCYTES 0.9 % (0-5); LYMPHOCYTES 8.4 % (15-50); MCH 31.1 pg (26.0-34.0); MCHC 32.7 g/dL (31.0-37.0); MCV 95.1 fL (80.0-100.0); MEAN PLATELET VOLUME 10.2 fL (7.4-10.4); MONOCYTES 11.3 % (2-11); NEUTROPHILS 75.7 % (40-80); PLATELET COUNT 144 10x3/uL (130-400); RBC 3.44 10x6/uL (4.00-5.40); RDW 13.7 % (11.5-14.5); WBC 6.7 10x3/uL (4.8-10.8)
[2019-07-29 05:26] LABS: ANION GAP 13.1 mmol/L (8-16); CALCIUM 8.2 mg/dL (8.5-10.1); CARBON DIOXIDE 24.2 mmol/L (21.0-32.0); CREATININE - SERUM 1.6 mg/dL (0.6-1.3); POTASSIUM - SERUM 3.3 mmol/L (3.5-5.1)
[2019-07-29 05:31] LABS: INR 2.32 (0.85-1.17); PROTIME 24.7 SECONDS (11.6-15.0)
--- NOTE | 2019-07-29 06:18 | NUR ---
I have reviewed this patient and I concur with the Shift Assessment completed by the Licensed Practical Nurse today this shift.
[2019-07-29 07:49] VITALS: BP 131/57
--- NOTE | 2019-07-29 08:00 | NUR ---
AWAKE AND ALERT. ORIENTED X3. C/O NOT FEELING WELL TODAY. "JUST ACHY ALL OVER". WILL MONITOR. LUNGS ARE CLEAR BUT DIMINISHED THROUGHOUT, OCCASSIONAL DRY COUGH NOTED. SKIN IS INTACT WITHOUT REDNESS. IV TO LEFT FOREARM IS PATENT WITHOUT REDNESS AT INSERTION SITE. BREAKFAST AT BEDSIDE. REFUSED TO EAT AT THIS TIME. WILL MONITOR.
--- NOTE | 2019-07-29 08:33 | NUR ---
C/O NAUSEA. GIVEN 4MG ZOFRAN PO FOR SAME. WILL MONITOR.
--- NOTE | 2019-07-29 10:00 | NUR ---
REFUSED BREAKFAST. TOOK HALF OF AM MEDS AT THIS TIME. STILL C/O SOME NAUSEA. WILL MONITOR.
[2019-07-29 10:20] LABS: % SATURATION 8 % (15-55); IRON 15 ug/dl (35-150); TOTAL IRON BIND CAPACITY 180 ug/dl (260-445); UNSAT IRON BIND CAPACITY 165 ug/dl (150-375)
[2019-07-29 13:10] VITALS: BP 137/75
[2019-07-29 16:58] VITALS: BP 155/69
--- NOTE | 2019-07-29 20:30 | NUR ---
LYING QUIELTY WATCHING TV. ALERT,ORIENTED.SKIN WARM DRY. RESP EVEN AND UNLABORED. O2 @ 2L PER NC ON. NO DISTRESS NOTED. SL TO LFA INTACT WITHOUT REDNESS OR EDEMA NOTED. CL IN REACH.
[2019-07-29 21:25] VITALS: BP 140/80
--- NOTE | 2019-07-30 03:25 | NUR ---
I have reviewed this patient and I concur with the Shift Assessment completed by the Licensed Practical Nurse today this shift.
[2019-07-30 04:47] VITALS: BP 148/80
[2019-07-30 05:47] LABS: BASOPHILS 0.3 % (0-2); EOSINOPHILS 3.8 % (0-7); HEMATOCRIT 35.7 % (36.0-48.0); HEMOGLOBIN 11.6 g/dL (12-16); IMMATURE GRANULOCYTES 0.5 % (0-5); MCH 31.4 pg (26.0-34.0); MCHC 32.5 g/dL (31.0-37.0); MCV 96.5 fL (80.0-100.0); MEAN PLATELET VOLUME 10.4 fL (7.4-10.4); MONOCYTES 12.2 % (2-11); NEUTROPHILS 68.2 % (40-80); PLATELET COUNT 169 10x3/uL (130-400); RDW 13.7 % (11.5-14.5); WBC 6.4 10x3/uL (4.8-10.8)
[2019-07-30 06:09] LABS: INR 2.11 (0.85-1.17); PROTIME 22.9 SECONDS (11.6-15.0)
[2019-07-30 06:14] LABS: ANION GAP 11.8 mmol/L (8-16); CALCIUM 8.2 mg/dL (8.5-10.1); CARBON DIOXIDE 26.1 mmol/L (21.0-32.0); CREATININE - SERUM 1.2 mg/dL (0.6-1.3); POTASSIUM - SERUM 3.9 mmol/L (3.5-5.1)
[2019-07-30 07:56] VITALS: BP 113/60
--- NOTE | 2019-07-30 14:30 | NUR ---
Nutrition follow-up: Diet: Regular PO Intake ~30% average of last 6 meals; pt has refused some meals Pt assessed with severe malnutrition due to wt loss and poor po intake Wt today: 101# Pt diarrhea is better Will continue to encourage increased po intake RDN following.
--- NOTE | 2019-07-30 15:37 | MORECARE ---
CASE MANAGEMENT DISCHARGE SUMMARY PATIENT: NICOLE SHETH UNIT: [id number] ADM DATE: 07/27/19 AGE: 83 : 36 SEX: F ROOM/BED: D.2214 AUTHOR: ELBERT,DOC PHYSICIAN: REFERRING PHYSICIAN: CHRISTIANO SCHERER MD DATE OF SERVICE: 07/30/19 Discharge Plan Patient Name: NICOLE SHETH Facility: [facility]:[place] : 1935 Planned Disposition: Home Anticipated Discharge Date: 07/30/19 Discharge Date: Expected LOS: 3 Initial Reviewer: [email or web address] Initial Review Date: 07/27/2019 Generated: 07/30/19 4:37 pm DCP- Discharge Planning Updated by [email or web address]: Maria Esther Abreu on 07/30/19 2:[address] SPOKE WITH PATIENT ABOUT HOME HEALTH, [facility] WITH [facility]. IMM SERVED AND EXPLAINED DCP- Discharge Planning Updated by [email or web address]: Dalila Mcpherson on 07/27/19 10:[address] DC PLAN: Return to [facility]. ANTICIPATED DC NEEDS: Denied known dc needs. CM met with patient to complete initial dc planning assessment. CM educated patient on the CM role and verbal consent given by patient to complete assessment. CM verified patient's address, phone number, and emergency contact phone numbers. Patient lives at [facility]. At discharge patient plans to return to [facility] and feels this is a safe discharge. CM discussed availability of home health, rehab services, and medical equipment. Patient denied known discharge needs at this time. Transportation provider at discharge will be [facility] . CM will continue to follow and will assist as needed with dc plans/needs. Dalila Mcpherson RN, [facility] DCPIA - Discharge Planning Initial Assessment Updated by [email or web address]: Dalila Mcpherson on 07/27/19 11:43 am * Is the patient Alert and Oriented? Yes * How many steps to enter\exit or inside your home? None * PCP Dr. Brant Eddy * Pharmacy [facility] * Preadmission Environment Assisted Living * Facility Name [id number] * ADLs Partial Dependent * Partial ADLs (Assistance needed) Medication Management * Equipment Oxygen Shower Chair Walker * Other Equipment Does not have portable Oxygen. Wears O2 @ HS and prn. * List name and contact numbers for known caregivers / representatives who currently or will assist patient after discharge: Fransisca Lyman - [phone]-she thinks * Verbal permission to speak to the caregivers and representatives has been obtained from the patient. Yes * Community resources currently utilized None * Additional services required to return to the preadmission environment? No * Can the patient safely return to the preadmission environment? Yes * Has this patient been hospitalized within the prior 30 days at any hospital? No Coverage Notice Reviewer: [id number] Marlee Abreu Notice Issued Date-Time: 07/30/2019 15:30 Notice Type: IM Discharge Notice Notice Delivered To: Patient Relationship to Patient: Scroll Shear Operator Name: Delivery Method: HAND - Hand Delivered Alma Days: Prior Verbal Notification: Recipient Understood Notice: Yes Recipient Signature: Yes Med Rec Note Co-signed by Attending: Coverage Notice Comment: Reviewer: [id number] Abreu Notice Issued Date-Time: 07/30/2019 15:30 Notice Type: Patient Choice Letter Notice Delivered To: Patient Relationship to Patient: Scroll Shear Operator Name: Delivery Method: PHONE - Phone Alma Days: Prior Verbal Notification: Recipient Understood Notice: Yes Recipient Signature: Yes Med Rec Note Co-signed by Attending: Coverage Notice Comment: Last DP export: 07/27/19 10:53 Patient Name: NICOLE SHETH Page [id number] at 1537 All edits/amendments must be made on the electronic document DICTATION DATE: 07/30/191536 COMMUNITY ASSOCIATION MANAGER: EVA 07/30/191536 RPT#: [id number] DC DATE: STATUS: ADM IN [facility] [address] [place] [address] END OF REPORT
[2019-07-30 16:38] VITALS: BP 154/78
[2019-07-30 22:13] VITALS: BP 146/57
[2019-07-31 01:21] VITALS: BP 154/70
[2019-07-31 05:34] VITALS: BP 130/60
[2019-07-31 06:58] LABS: BASOPHILS 0.3 % (0-2); EOSINOPHILS 3.8 % (0-7); HEMATOCRIT 32.7 % (36.0-48.0); HEMOGLOBIN 10.6 g/dL (12-16); IMMATURE GRANULOCYTES 1.2 % (0-5); LYMPHOCYTES 17.3 % (15-50); MCH 31.2 pg (26.0-34.0); MCHC 32.4 g/dL (31.0-37.0); MCV 96.2 fL (80.0-100.0); MEAN PLATELET VOLUME 10.4 fL (7.4-10.4); MONOCYTES 12.5 % (2-11); NEUTROPHILS 64.9 % (40-80); PLATELET COUNT 180 10x3/uL (130-400); RDW 13.5 % (11.5-14.5); WBC 7.6 10x3/uL (4.8-10.8)
[2019-07-31 07:10] LABS: ANION GAP 10.8 mmol/L (8-16); CALCIUM 8.2 mg/dL (8.5-10.1); CARBON DIOXIDE 25.7 mmol/L (21.0-32.0); POTASSIUM - SERUM 3.5 mmol/L (3.5-5.1)
[2019-07-31 07:11] LABS: INR 2.4 (0.85-1.17); PROTIME 25.4 SECONDS (11.6-15.0)
[2019-07-31 07:13] LABS: CREATININE - SERUM 1.7 mg/dL (0.6-1.3)
--- NOTE | 2019-07-31 07:40 | NUR ---
PT IS RESTING IN BED WITH EYES CLOSED. RESPIRATIONS ARE EVEN AND UNLABORED. PT IS EASILY AROUSED WITH VERBAL STIMULATION. PT IS AAO X 4 UPON AROUSAL. PT IS NOTTAWASEPPI POTAWATOMI BUT ANSWERS ALL QUESTIONS APPROPRIATELY. PT IS ON RA AND DENIES PRESENCE OF PAIN/N/V AT THIS TIME. BED IS IN THE LOWEST POSITION. CALL LIGHT AND BEDSIDE TABLE ARE WITHIN REACH. SIDE RAILS X 2. NANCY ALARM IS ON AND WORKING. WILL CONT TO MONITOR.
--- NOTE | 2019-07-31 08:09 | NUR ---
PT WITH PERIOD OF LARGE INCONTINENCE OF BLADDER. COMPLETE LINEN/GOWN CHANGED. PT CLEANED. PT STATES "IT JUST KEEPS RUNNING OUT. I CANT STOP IT". PT EDUCATED ON PUREWICK AND PT IS AGREEABLE FOR PUREWICK USE. PUREWICK PLACED AT THIS TIME. BED IS IN THE LOWEST POSITION. CALL LIGHT AND BEDSIDE TABLE ARE WITHIN REACH. SIDE RAILS X 2. NANCY ALARM IS ON AND WORKING. PT DENIES FURTHER NEEDS. WILL CONT TO MONITOR.
[2019-07-31 08:42] VITALS: BP 149/59
[2019-07-31] MEDS ORDERED: MUCINEX600 MG PO (10:56)
[2019-07-31] MEDS ORDERED: ZITHROMAX250 MG PO (10:57)
[2019-07-31] MEDS ORDERED: OMNICEF300 MG PO (10:57)
[2019-07-31 12:25] VITALS: BP 137/57
--- NOTE | 2019-07-31 14:10 | NUR ---
REPORT CALLED TO RORO PIMENTEL @ [facility]. ALL QUESTIONS ANSWERED.
--- NOTE | 2019-07-31 14:30 | NUR ---
ALL DISCHARGE INSTRUCTIONS COVERED WITH PT. PT DENIES FURTHER QUESTIONS/CONCERNS/NEEDS. PIV TO RIGHT FA REMOVED WITH CATHETER TIP INTACT. DRESSING APPLIED. TELEMETRY REMOVED. PT TO NOTIFY NURSE WHEN TRANSPORT TO [facility] ARRIVES. BED IS IN THE LOWEST POSITION. CALL LIGHT AND BEDSIDE TABLE ARE WITHIN REACH. SIDE RAILS X 2. NANCY ALARM IS ON AND WORKING. WILL CONT TO MONITOR. ALL DISCHARGE PAPERS SIGNED BY PATIENT. SIGNED DC PAPERS PLACED IN CHART.
--- NOTE | 2019-07-31 14:44 | MORECARE ---
CASE MANAGEMENT DISCHARGE SUMMARY PATIENT: NICOLE SHETH UNIT: [id number] ADM DATE: 07/27/19 AGE: 83 : 36 SEX: F ROOM/BED: D.2214 AUTHOR: ELBERT,DOC PHYSICIAN: REFERRING PHYSICIAN: CHRISTIANO SCHERER MD DATE OF SERVICE: 07/31/19 Discharge Plan Patient Name: NICOLE SHETH Facility: [facility]:[place] : 1935 Planned Disposition: Home Anticipated Discharge Date: 07/30/19 Discharge Date: Expected LOS: 3 Initial Reviewer: [email or web address] Initial Review Date: 07/27/2019 Generated: 07/31/19 3:44 pm Comments DCP- Discharge Planning Updated by [email or web address]: Maria Esther Abreu on 07/31/19 1:[address] Patient is discharging home to [facility], she will have [employer] [facility] and [facility] will provide transportation home DCP- Discharge Planning Updated by [id number]: Maria Esther Abreu on 07/30/19 2:[address] SPOKE WITH PATIENT ABOUT HOME HEALTH, [facility] WITH [facility]. IMM SERVED AND EXPLAINED DCP- Discharge Planning Updated by [email or web address]: Dalila Mcpherson on 07/27/19 10:[address] DC PLAN: Return to [facility]. ANTICIPATED DC NEEDS: Denied known dc needs. CM met with patient to complete initial dc planning assessment. CM educated patient on the CM role and verbal consent given by patient to complete assessment. CM verified patient's address, phone number, and emergency contact phone numbers. Patient lives at [facility]. At discharge patient plans to return to [facility] and feels this is a safe discharge. CM discussed availability of home health, rehab services, and medical equipment. Patient denied known discharge needs at this time. Transportation provider at discharge will be [facility] . CM will continue to follow and will assist as needed with dc plans/needs. Dalila Mcpherson RN, [facility] DCPIA - Discharge Planning Initial Assessment Updated by [email or web address]: Dalila Mcpherson on 07/27/19 11:43 am * Is the patient Alert and Oriented? Yes * How many steps to enter\exit or inside your home? None * PCP Dr. Brant Eddy * Pharmacy [facility] * Preadmission Environment Assisted Living * Facility Name [facility] [phone] * ADLs Partial Dependent * Partial ADLs (Assistance needed) Medication Management * Equipment Oxygen Shower Chair Walker * Other Equipment Does not have portable Oxygen. Wears O2 @ HS and prn. * List name and contact numbers for known caregivers / representatives who currently or will assist patient after discharge: Fransisca Lyman - [phone]-she thinks * Verbal permission to speak to the caregivers and representatives has been obtained from the patient. Yes * Community resources currently utilized None * Additional services required to return to the preadmission environment? No * Can the patient safely return to the preadmission environment? Yes * Has this patient been hospitalized within the prior 30 days at any hospital? No External Providers External Provider: [employer] Next Contact Date: Service Request Date: Service Type: Resolution: Reviewer: Comments: Coverage Notice Reviewer: [id number] Marlee Abreu Notice Issued Date-Time: 07/30/2019 15:30 Notice Type: IM Discharge Notice Notice Delivered To: Patient Relationship to Patient: Automobile Carpets Molder Name: Delivery Method: HAND - Hand Delivered Alma Days: Prior Verbal Notification: Recipient Understood Notice: Yes Recipient Signature: Yes Med Rec Note Co-signed by Attending: Coverage Notice Comment: Reviewer: [id number] Abreu Notice Issued Date-Time: 07/30/2019 15:30 Notice Type: Patient Choice Letter Notice Delivered To: Patient Relationship to Patient: Automobile Carpets Molder Name: Delivery Method: PHONE - Phone Alma Days: Prior Verbal Notification: Recipient Understood Notice: Yes Recipient Signature: Yes Med Rec Note Co-signed by Attending: Coverage Notice Comment: Last DP export: 07/30/19 2:37 Patient Name: NICOLE SHETH Page [id number] at 1444 All edits/amendments must be made on the electronic document DICTATION DATE: 07/31/191442 MEDICAL COLLECTIONS SPECIALIST: EVA 07/31/191442 RPT#: [id number] DC DATE: STATUS: ADM IN [facility] [address] [place] [address] END OF REPORT
--- NOTE | 2019-07-31 15:12 | NUR ---
PT TRANSPORTED OFF FLOOR VIA WHEELCHAIR WITH [facility]. PT TRANSPORTED FROM ROOM BY [facility]. PT DENIES FURTHER QUESTIONS/CONCERNS/NEEDS AT THIS TIME.
--- NOTE | 2019-08-03 15:23 | MORECARE ---
CASE MANAGEMENT DISCHARGE SUMMARY PATIENT: NICOLE SHETH UNIT: [id number] ADM DATE: 07/27/19 AGE: 83 : 36 SEX: F ROOM/BED: D.2214 AUTHOR: ELBERT,DOC PHYSICIAN: REFERRING PHYSICIAN: CHRISTIANO SCHERER MD DATE OF SERVICE: 08/03/19 Discharge Plan Patient Name: NICOLE SHETH Facility: [facility]:[place] : 1935 Planned Disposition: Home Anticipated Discharge Date: 07/30/19 Discharge Date: 07/31/2019 Expected LOS: 3 Initial Reviewer: [email or web address] Initial Review Date: 07/27/2019 Generated: 08/03/19 4:22 pm Comments DCP- Discharge Planning Updated by [email or web address]: Maria Esther Abreu on 07/31/19 1:[address] Patient is discharging home to [facility], she will have [facility] and [facility] will provide transportation home DCP- Discharge Planning Updated by [email or web address]: Maria Esther Abreu on 07/30/19 2:[address] SPOKE WITH PATIENT ABOUT HOME HEALTH, [facility] WITH [employer]. IMM SERVED AND EXPLAINED DCP- Discharge Planning Updated by [email or web address]: Dalila Mcpherson on 07/27/19 10:[address] DC PLAN: Return to [facility]. ANTICIPATED DC NEEDS: Denied known dc needs. CM met with patient to complete initial dc planning assessment. CM educated patient on the CM role and verbal consent given by patient to complete assessment. CM verified patient's address, phone number, and emergency contact phone numbers. Patient lives at [facility]. At discharge patient plans to return to [facility] and feels this is a safe discharge. CM discussed availability of home health, rehab services, and medical equipment. Patient denied known discharge needs at this time. Transportation provider at discharge will be [facility] . CM will continue to follow and will assist as needed with dc plans/needs. Dalila Mcpherson RN, [facility] DCPIA - Discharge Planning Initial Assessment Updated by [email or web address]: Dalila Mcpherson on 07/27/19 11:43 am * Is the patient Alert and Oriented? Yes * How many steps to enter\exit or inside your home? None * PCP Dr. Brant Eddy * Pharmacy [facility] * Preadmission Environment Assisted Living * Facility Name [facility] [phone] * ADLs Partial Dependent * Partial ADLs (Assistance needed) Medication Management * Equipment Oxygen Shower Chair Walker * Other Equipment Does not have portable Oxygen. Wears O2 @ HS and prn. * List name and contact numbers for known caregivers / representatives who currently or will assist patient after discharge: Fransisca Lyman - [phone]-she thinks * Verbal permission to speak to the caregivers and representatives has been obtained from the patient. Yes * Community resources currently utilized None * Additional services required to return to the preadmission environment? No * Can the patient safely return to the preadmission environment? Yes * Has this patient been hospitalized within the prior 30 days at any hospital? No Coverage Notice Reviewer: [id number] Marlee Abreu Notice Issued Date-Time: 07/30/2019 15:30 Notice Type: IM Discharge Notice Notice Delivered To: Patient Relationship to Patient: Marine Photographer Name: Delivery Method: HAND - Hand Delivered Alma Days: Prior Verbal Notification: Recipient Understood Notice: Yes Recipient Signature: Yes Med Rec Note Co-signed by Attending: Coverage Notice Comment: Reviewer: [email or web address] Marlee Abreu Notice Issued Date-Time: 07/30/2019 15:30 Notice Type: Patient Choice Letter Notice Delivered To: Patient Relationship to Patient: Marine Photographer Name: Delivery Method: PHONE - Phone Alma Days: Prior Verbal Notification: Recipient Understood Notice: Yes Recipient Signature: Yes Med Rec Note Co-signed by Attending: Coverage Notice Comment: Last DP export: 07/31/19 1:44 Patient Name: NICOLE SHETH Page [id number] at 1523 All edits/amendments must be made on the electronic document DICTATION DATE: 08/03/191521 STRIP STAMP STRAIGHTENER: EVA 08/03/191521 RPT#: [id number] DC DATE:07/31/19 STATUS: DIS IN [facility] [address] [place] [address] END OF REPORT
== END 2019-07-31 15:13 | disposition home health service (06) | DRG 193 ==
LOC: D.ER 08:15 → D.MS 09:45
PROVIDERS: Family Medicine; ADMIT Internal Medicine Nephrology; ATTEND Internal Medicine Nephrology
DX: J18.1 Lobar pneumonia, unspecified organism (principal); J96.01 Acute respiratory failure with hypoxia; E43 Unspecified severe protein-calorie malnutrition; N17.9 Acute kidney failure, unspecified; E87.1 Hypo-osmolality and hyponatremia; Z68.1 Body mass index [BMI] 19.9 or less, adult; R19.7 Diarrhea, unspecified; I12.9 Hypertensive chronic kidney disease with stage 1 through stage 4 chronic kidney disease, or unspecified chronic kidney disease; N18.9 Chronic kidney disease, unspecified; Z86.73 Personal history of transient ischemic attack (TIA), and cerebral infarction without residual deficits; E87.6 Hypokalemia; Z79.01 Long term (current) use of anticoagulants; Z95.0 Presence of cardiac pacemaker; I49.5 Sick sinus syndrome